=== PATIENT | male | born 1940 | race Caucasian/White ===

== ENCOUNTER 2019-02-02 09:01 | Outpatient (CLI) | payer MEDICARE ==
[2019-02-02] MEDS ORDERED: OMNIPAQUE 350 MG/ML, 150 ML BOTTLE ONE (11:27)
== END 2019-02-02 23:59 | disposition home or self-care (01) ==
LOC: CVU 09:01 → RAD 23:59
PROVIDERS: ATTEND Internal Medicine Cardiovascular Disease
DX: Z48.812 Encounter for surgical aftercare following surgery on the circulatory system (principal); I65.22 Occlusion and stenosis of left carotid artery; I70.1 Atherosclerosis of renal artery; J98.11 Atelectasis; K80.20 Calculus of gallbladder without cholecystitis without obstruction; I10 Essential (primary) hypertension; E78.5 Hyperlipidemia, unspecified; I48.91 Unspecified atrial fibrillation; Z95.0 Presence of cardiac pacemaker
CPT/HCPCS: 71275; 74174; 93880; 94060; 94726; 94729; Q9967

== ENCOUNTER 2019-02-08 07:34 | Inpatient (IN) | payer MEDICARE ==
[~2019-02-08] VITALS: Ht 172.7 cm; Wt 84.9 kg
[2019-02-08] MEDS ORDERED: SODIUM CHLORIDE 0.9% 1,000 ML IV ONE (07:53)
[2019-02-08] MEDS ORDERED: CHLORHEXIDINE 15 ML UDC MM PRN (08:00)
[2019-02-08] MEDS ORDERED: ONDANSETRON 2MG/ML, 2ML IVPush PRN ×2 (08:00→10:30)
[2019-02-08 08:02] VITALS: BP 189/96
[2019-02-08] MEDS ORDERED: AMLO10TA8 PO (08:38)
[2019-02-08] MEDS ORDERED: ALPR0.254 PO (08:38)
[2019-02-08] MEDS ORDERED: MULT-257 PO (08:39)
[2019-02-08] MEDS ORDERED: PANT40TA5 PO (08:39)
[2019-02-08] MEDS ORDERED: TERA5CAP3 PO (08:39)
[2019-02-08] MEDS ORDERED: ROSU20TA2 PO (08:39)
[2019-02-08] MEDS ORDERED: CARV25TA12 PO (08:39)
[2019-02-08] MEDS ORDERED: CLOP75TA PO (08:39)
[2019-02-08] MEDS ORDERED: CHLO25TA PO (08:39)
[2019-02-08] MEDS ORDERED: APIX5TAB PO (08:39)
[2019-02-08] MEDS ORDERED: VALS320T2 PO (08:39)
[2019-02-08] MEDS ORDERED: CHOL200074 PO (08:39)
[2019-02-08] MEDS ORDERED: B CO1TAB14 PO (08:39)
[2019-02-08 08:42] LABS: BASOPHILS # (AUTO) 0.03 x10^3/uL (0-0.1); BASOPHILS % (AUTO) 1 % (0-1); EOSINOPHILS % (AUTO) 7 % (1-7); LYMPHOCYTES # (AUTO) 0.75 x10^3/uL (1-3.4); LYMPHOCYTES % (AUTO) 13 % (22-44); MD NO; MEAN CORPUSCULAR HEMOGLOBIN 34.6 pg (27.5-34.5); MEAN CORPUSCULAR HGB CONC 32.7 g/dL (33.2-36.2); MEAN CORPUSCULAR VOLUME 105.8 fL (81-97); MEAN PLATELET VOLUME 7.5 fL (7.4-10.4); MONOCYTES # (AUTO) 0.51 x10^3/uL (0.2-0.8); MONOCYTES % (AUTO) 9 % (2-9); NEUTROPHILS # (AUTO) 3.94 x10^3/uL (1.8-6.8); NEUTROPHILS % (AUTO) 70 % (42-75); PLATELET COUNT 152 x10^3/uL (130-400); RED BLOOD COUNT 4.22 x10^6/uL (4.38-5.82); RED CELL DISTRIBUTION WIDTH 13.5 % (9.4-14.8)
[2019-02-08 08:46] LABS: INTERNATIONAL NORMALIZED RATIO 1.02 (0.93-1.1); PROTHROMBIN TIME 10.7 Seconds (9.6-11.5)
[2019-02-08 08:50] LABS: ALBUMIN 3.7 g/dL (3.4-5.0); ANION GAP 5 mmol/L (5-15); CHLORIDE 107 mmol/L (98-107)
[2019-02-08 08:56] LABS: ALANINE AMINOTRANSFERASE 40 U/L (12-78); ALKALINE PHOSPHATASE 71 U/L (45-117); BILIRUBIN,TOTAL 0.6 mg/dL (0.2-1.0); CREATININE 1.34 mg/dL (0.7-1.3); TOTAL PROTEIN 7.3 g/dL (6.4-8.2)
[2019-02-08] MEDS ORDERED: FENTANYL PF 100 MCG/2ML ONE (09:09)
[2019-02-08] MEDS ORDERED: DEXAMETHASONE 4 MG/ML, 1ML ONE (09:10)
[2019-02-08] MEDS ORDERED: ROCURONIUM 10MG/ML,5ML ONE (09:11)
[2019-02-08] MEDS ORDERED: PROPOFOL 10 MG/ML, 20ML ONE (09:11)
[2019-02-08] MEDS ORDERED: SUCCINYLCHOLINE 20 MG/ML, 10ML ONE (09:11)
[2019-02-08] MEDS ORDERED: EPHEDRINE 50 MG/ML, 1ML ONE (09:32)
[2019-02-08] MEDS ORDERED: PROTAMINE SULFATE 10 MG/ML, 5ML ONE (09:55)
[2019-02-08] MEDS ORDERED: ACETAMINOPHEN 325 MG TABLET PO PRN (10:30)
[2019-02-08] MEDS ORDERED: LABETALOL 20 MG/4 ML IVPush PRN (10:30)
[2019-02-08] MEDS ORDERED: HYDROcodone/APAP 5/325 TABLET PO PRN (10:30)
[2019-02-08] MEDS: CHLORTHALIDONE 25 MG TABLET PO SCH (10:41)
[2019-02-08] MEDS: CARVEDILOL 25 MG TABLET PO SCH ×2 (10:41→21:20)
[2019-02-08] MEDS: CLOPIDOGREL 75 MG TABLET PO SCH (10:41)
[2019-02-08] MEDS ORDERED: hydrALAzine 20 MG/ML, 1ML ONE ×2 (10:48→11:13)
[2019-02-08] MEDS: hydrALAzine 20 MG/ML, 1ML IVPush PRN ×2 (10:51→11:22)
[2019-02-08 12:43] VITALS: BP 136/67
[2019-02-08 13:45] VITALS: BP 166/74
[2019-02-08 18:21] VITALS: BP 144/72
[2019-02-08 19:45] VITALS: BP 161/80
[2019-02-08] MEDS ORDERED: ATORVASTATIN 80 MG TABLET PO SCH (21:00)
[2019-02-08] MEDS ORDERED: TERAZOSIN 5MG CAPSULE PO SCH (21:00)
[2019-02-08] MEDS ORDERED: TEMPLATE NON-FORMULARY MED. (Rosuvastatin Calcium** (Crestor**) 20 MG) PO SCH (21:00)
[2019-02-08] MEDS ORDERED: VALSARTAN 320 MG TABLET PO SCH (21:00)
[2019-02-08] MEDS ORDERED: AMLODIPINE 5 MG TABLET PO SCH (21:00)
[2019-02-08] MEDS: APIXABAN 5 MG TABLET PO SCH (21:20)
[2019-02-08 21:22] VITALS: BP 162/76
[2019-02-09 01:05] VITALS: BP 155/77
[2019-02-09 06:19] LABS: BASOPHILS % (AUTO) 0 % (0-1); EOSINOPHILS % (AUTO) 0 % (1-7); LYMPHOCYTES # (AUTO) 0.44 x10^3/uL (1-3.4); LYMPHOCYTES % (AUTO) 5 % (22-44); MD NO; MEAN CORPUSCULAR HEMOGLOBIN 35.9 pg (27.5-34.5); MEAN CORPUSCULAR HGB CONC 33.9 g/dL (33.2-36.2); MEAN CORPUSCULAR VOLUME 105.7 fL (81-97); MEAN PLATELET VOLUME 7.7 fL (7.4-10.4); MONOCYTES # (AUTO) 0.57 x10^3/uL (0.2-0.8); MONOCYTES % (AUTO) 7 % (2-9); NEUTROPHILS # (AUTO) 7.82 x10^3/uL (1.8-6.8); NEUTROPHILS % (AUTO) 89 % (42-75); PLATELET COUNT 122 x10^3/uL (130-400); RED BLOOD COUNT 3.71 x10^6/uL (4.38-5.82); RED CELL DISTRIBUTION WIDTH 13.2 % (9.4-14.8)
[2019-02-09 06:22] LABS: ANION GAP 6 mmol/L (5-15); CALCIUM 8.3 mg/dL (8.5-10.1); CHLORIDE 107 mmol/L (98-107)
[2019-02-09] MEDS ORDERED: PANTOPROZOLE 40MG TABLET PO SCH (09:00)
[2019-02-09] MEDS ORDERED: MULTIVITAMIN 1 TABLET PO SCH (09:00)
[2019-02-09] MEDS ORDERED: CEFAZOLIN 1,000 MG ONE (09:16)
[2019-02-09] MEDS ORDERED: PHENYLEPHRINE 10 MG/ML ONE (09:16)
[2019-02-09] MEDS ORDERED: ONDANSETRON 2MG/ML, 2ML ONE (09:16)
[2019-02-09 09:39] VITALS: BP 135/64
[2019-02-09] MEDS: CLOPIDOGREL 75 MG TABLET PO SCH (09:41)
[2019-02-09] MEDS: APIXABAN 5 MG TABLET PO SCH (09:41)
[2019-02-09] MEDS: CARVEDILOL 25 MG TABLET PO SCH (09:42)
[2019-02-09] MEDS: CHLORTHALIDONE 25 MG TABLET PO SCH (09:42)
== END 2019-02-09 12:47 | disposition home or self-care (01) | DRG 266 ==
LOC: ORIP 07:34 → 5SO 12:30 → DCLOUNGE 02-09 12:30
PROVIDERS: ADMIT Internal Medicine Cardiovascular Disease; ATTEND Internal Medicine Cardiovascular Disease
PROC: B24BZZ4 Ultrasonography of Heart with Aorta, Transesophageal (ICD-10-PCS; 2019-02-08)
PROC: 03HY32Z Insertion of Monitoring Device into Upper Artery, Percutaneous Approach (ICD-10-PCS; 2019-02-08)
PROC: B31P1ZZ Fluoroscopy of Thoraco-Abdominal Aorta using Low Osmolar Contrast (ICD-10-PCS; 2019-02-08)
PROC: 02RF38Z Replacement of Aortic Valve with Zooplastic Tissue, Percutaneous Approach (ICD-10-PCS; principal; 2019-02-08 10:00)
DX: I35.0 Nonrheumatic aortic (valve) stenosis (principal); Z00.6 Encounter for examination for normal comparison and control in clinical research program; I50.33 Acute on chronic diastolic (congestive) heart failure; I25.810 Atherosclerosis of coronary artery bypass graft(s) without angina pectoris; D68.69 Other thrombophilia; E78.5 Hyperlipidemia, unspecified; I27.20 Pulmonary hypertension, unspecified; I11.0 Hypertensive heart disease with heart failure; D75.89 Other specified diseases of blood and blood-forming organs; D69.6 Thrombocytopenia, unspecified; D64.9 Anemia, unspecified; K21.9 Gastro-esophageal reflux disease without esophagitis; I48.2 Chronic atrial fibrillation; Z79.01 Long term (current) use of anticoagulants; Z95.1 Presence of aortocoronary bypass graft; Z95.5 Presence of coronary angioplasty implant and graft
CPT/HCPCS: 33361; 36415; 80048; 80053; 83880; 85025; 85347; 85610; 86850; 86900; 86923; 93005; 93306; 93312; 93321; 93325; 93355; C1760; C1769; C1894; G0378; J0690; J1100; J2405; J2704; J2720; J3010; J0330; J0360; J2370; J7030; Q9967

== ENCOUNTER → 2019-03-15 | Outpatient (CLI) | payer MEDICARE ==
[~2019-03-15] MED LIST: ALPR0.254 PO; AMLO10TA8 PO; APIX5TAB PO; B CO1TAB14 PO; CARV25TA12 PO; CHLO25TA PO; CHOL200074 PO; CLOP75TA PO; MULT-257 PO; PANT40TA5 PO; ROSU20TA2 PO; TERA5CAP3 PO; VALS320T2 PO
== END | disposition home or self-care (01) ==
LOC: CVU 12:39
PROVIDERS: ATTEND Internal Medicine Cardiovascular Disease
DX: I08.8 Other rheumatic multiple valve diseases (principal); I10 Essential (primary) hypertension; I48.91 Unspecified atrial fibrillation; E78.5 Hyperlipidemia, unspecified; Z87.891 Personal history of nicotine dependence
CPT/HCPCS: 93306

== ENCOUNTER → 2020-03-13 | Outpatient (CLI) | payer MEDICARE | END | disposition home or self-care (01) | LOC: CFH 12:09 | PROVIDERS: ATTEND Internal Medicine Cardiovascular Disease | DX: I08.8 Other rheumatic multiple valve diseases (principal); I11.9 Hypertensive heart disease without heart failure | CPT/HCPCS: 93306 ==